=== PATIENT | male | born 1965 | race Caucasian/White ===

== ENCOUNTER 2020-08-21 19:16 | Emergency (ER) | payer OTHER ==
[~2020-08-21] VITALS: Ht 175.3 cm; Wt 108.2 kg
[2020-08-21] MEDS ORDERED: LISINOPRIL 10 MG TABLET PO ONE (20:30)
[2020-08-21 20:45] VITALS: BP 165/100
[2020-08-21] MEDS ORDERED: ACETAMINOPHEN 325 MG TABLET PO ONE (20:45)
== END 2020-08-21 20:45 ==
LOC: EMS 19:16
DX: I10 Essential (primary) hypertension (principal); E11.9 Type 2 diabetes mellitus without complications
CPT/HCPCS: 99283